=== PATIENT | female | born 1955 | race Caucasian/White ===

== ENCOUNTER 2016-07-29 09:27 | Emergency (ER) | payer OTHER ==
[~2016-07-29] VITALS: Ht 165.1 cm; Wt 72.6 kg
[2016-07-29] MEDS ORDERED: LAMOTRIGINE200 MG PO (09:35)
[2016-07-29] MEDS ORDERED: VASOTEC10 MG PO (09:35)
[2016-07-29] MEDS ORDERED: WELLBUTRIN XL300 MG PO (09:35)
[2016-07-29] MEDS ORDERED: VENTOLIN HFA 1818 GM INH (09:36)
[2016-07-29] MEDS ORDERED: ADVAIR 500-501 EACH INH (09:36)
[2016-07-29] MEDS ORDERED: FLONASE 0.05%50 MCG NASAL (09:36)
[2016-07-29] MEDS ORDERED: SINGULAIR 10 MG10 M1 PO (09:36)
[2016-07-29] MEDS ORDERED: CLARITIN10 M2 PO (09:37)
[2016-07-29] MEDS ORDERED: IBUPROFEN 600600 M1 PO (10:46)
[2016-07-29] MEDS ORDERED: CLEOCIN HCL300 MG PO (10:46)
[2016-07-29 11:03] VITALS: BP 152/103
== END 2016-07-29 11:05 | disposition home or self-care (01) ==
LOC: ER 09:27
DX: L03.116 Cellulitis of left lower limb (principal); I10 Essential (primary) hypertension; F32.9 Major depressive disorder, single episode, unspecified; F17.210 Nicotine dependence, cigarettes, uncomplicated